=== PATIENT | male | born 1950 | race African-American/Black ===

== ENCOUNTER 2018-06-26 12:33 | Observation (INO) ==
[2018-06-26] MEDS ORDERED: NS 1,000 ML IV ONE ×2 (12:55→15:04)
[2018-06-26 13:06] LABS: BASO# 0.01 X1000 (0.0-0.2); BASO% 0.1 % (0.0-0.8); EOS# 0.02 X1000 (0.0-0.7); EOS% 0.2 % (0.0-10.0); HEMATOCRIT 48.9 % (42.0-52.0); HEMOGLOBIN 15.9 g/dL (14.0-18.0); IMM GRAN# 0.02 X1000 (0.0-0.04); IMM GRAN% 0.2 % (0.0-0.5); LYMPH% 11.7 % (20.5-51.1); MCH 28.6 PG (27-31); MCHC 32.5 g/dL (33-37); MCV 87.9 FL (81-99); MONO# 0.79 X1000 (0.11-0.59); MONO% 9.2 % (1.7-9.3); MPV 10.9 FL (7.4-10.4); NEUT# 6.74 X1000 (1.4-6.5); NEUT% 78.6 % (42.2-75.2); PLT 227 X1000 (130-400); RBC 5.56 XMIL (4.7-6.1); RDW 13.2 % (11.5-14.5); WBC 8.58 X1000 (4.8-10.8)
[2018-06-26] MEDS ORDERED: ZOFRAN IV ONE (13:07)
[2018-06-26 13:34] LABS: BILIRUBIN URINE 1+ (NEGATIVE); BLOOD URINE 4+ (NEGATIVE); CLARITY CLEAR (CLEAR); COLOR AMBER; GLUCOSE URINE NEGATIVE (NEGATIVE); KETONE URINE TRACE mg/dL (NEGATIVE); LEUKOCYTES URINE 1+ (NEGATIVE); NITRITE URINE POSITIVE (NEGATIVE); PH URINE 6.5; SP GRAVITY URINE 1.025; UROBILINOGEN URINE 1 mg/dL
[2018-06-26 13:39] LABS: URINE BACTERIA 2+ /HFP; URINE EPITHELIAL CELLS <10 /HPF (<10); URINE SOURCE CLEAN CATCH
[2018-06-26 13:41] LABS: ALBUMIN 4.6 g/dL (3.5-5.0); CALCIUM 9.8 mg/dL (8.8-10.2); CREATININE 2.1 mg/dL (0.7-1.2); POTASSIUM 3.4 mmol/L (3.5-5.1); TOTAL BILIRUBIN 0.8 mg/dL (0.20-1.00); TOTAL PROTEIN 8.7 g/dL (6.3-8.3)
--- NOTE | 2018-06-26 13:46 | Diag Imaging Result Doc PS360 ---
EXAM: ABDOMEN FLAT/UPRIGHT - 06/26/2018 HISTORY: pain epigastrium TECHNIQUE: Supine and upright abdomen COMPARISON: 06/23/2018 FINDINGS: The bowel gas pattern appears nonspecific and nonobstructive. There are some retained fecal debris in the colon. There is no free air identified. IMPRESSION: Nonspecific bowel gas pattern. Electronically signed by Florian Christine 06/26/2018 1:44 PM
--- NOTE | 2018-06-26 14:25 | PROVIDER DOCUMENTATION ---
This chart was entered by Erlinda Rojo Scribe, acting as scribe for Ravindra Kent MD. HPI-Abdominal Pain/GI Problem - General Chief Complaint: Return/Recheck Stated Complaint: THROWING UP & STOMACH ISSUES Time Seen by Provider: 06/26/18 12:51 Source: patient Allergies/Adverse Reactions: Patient Allergies Allergy/AdvReac Type Severity Reaction Status Date / Time baclofen AdvReac Unknown Verified 06/23/18 17:16 Home Medications: Home Medication List Medication Instructions Recorded Confirmed Last Taken Type Docusate Sodium [Colace] 100 mg PO DAILY #10 cap 06/23/18 Unknown Rx Magnesium Citrate [Citrate of 300 ml PO ONCE #1 bottle 06/23/18 Unknown Rx Magnesia] - History of Present Illness-ABD Nature of Presenting Problems: 67 yobm presents to the ed with 3 days of intermittent abdominal pain with n/v. pt was recently seen at [facility] with same complaint. pt on exam looks to not feel well and has dizziness and weakness with worsening sx Abdominal Pain Onset Location: reports: periumbilical Pain Radiation: reports: epigastric Quality of Pain: reports: cramping, other (nausea) Severity in ED: reports: moderate Onset/Duration: reports: 3 days ago Timing: reports: still present, intermittent, getting worse Activities at Onset: reports: light activity Exposure to sick contacts?: No Modifying Factors: improves with: nothing. worse with: eating Associated Symptoms: reports: constipation, dizziness, fatigue, loss of appetite , malaise, nausea, vomiting, weakness. denies: arm pain, back/neck pain, chest pain, cough, diarrhea, fever/chills, headaches, shortness of breath Last BM: last night Dark Stools Present?: reports: none noticed Rectal Bleeding: reports: none # of Diarrhea Episodes: 0 Rectal Pain: reports: none # of Vomiting Episodes: 2 (x2 daily) Emesis Description: reports: other (yellow) Bruising or Bleeding Gums?: No Similar Symptoms Previously?: Yes (er ) Recently seen or treated by another doctor?: Yes (have been seen at [facility]) Review of Systems - Adult - REVIEW OF SYSTEMS - ADULT Constitutional: denies: chills, fever Eyes: denies: blurred vision, double vision Ears, Nose, Mouth & Throat: reports: no symptoms reported Cardiovascular: denies: chest pain, palpitations, syncope Respiratory: denies: cough, shortness of breath, wheezing Gastrointestinal: reports: see HPI, abdominal pain, constipation, nausea, poor appetite, vomiting. denies: diarrhea Genitourinary: reports: no symptoms reported Musculoskeletal: reports: see HPI, muscle weakness. denies: back pain, neck pain Integumentary: reports: no symptoms reported Neurological: reports: see HPI, dizziness/vertigo. denies: headache/migraines, numbness, paresthesia, seizure, slurred speech, syncope, tremors Psychiatric: reports: no symptoms reported Endocrine: reports: no symptoms reported Hematologic/Lymphatic: reports: no symptoms reported Allergic/Immunologic: reports: no symptoms reported All Other Systems: Reviewed and Negative Past History - Adult - PAST MEDICAL HISTORY-ADULT Review of Records: reports: Nursing Assessment Review, Medications Reviewed Major Childhood Illnesses: reports: denies history Cardiovascular: reports: denies history Respiratory: reports: denies history Gastrointestinal: reports: denies history Genitourinary: reports: prostate cancer Musculoskeletal: reports: denies history Hand Dominance: Right Handed Neurological: reports: denies history Psychiatric: reports: denies history Endocrine/Immune: reports: denies history Other Conditions: reports: denies history - PRIOR SURGERIES/PROCEDURES Surgical/Procedure History: reports: other (prostate) - IMMUNIZATION STATUS Childhood Immunizations: See Nurse Assessment Flu Vaccine: See Nurse Assessment - FAMILY HISTORY Family History: reviewed, not pertinent - SOCIAL HISTORY Smoking: quit greater than 1 year Substance Use: denies Living Situation: family Physical Exam-General - PHYSICAL EXAM-ADULT Initial Vital Signs Reviewed: Yes - CONSTITUTIONAL General Appearance: alert, mild distress. negative: appears well - EYES Eyes: PERRL/EOMI, pale conjunctivae - HEAD, EARS, NOSE, MOUTH & THROAT HENMT: negative: moist mucous membranes - NECK Neck: non-tender, full range of motion - RESPIRATORY Respiratory: chest non-tender, lungs clear, normal breath sounds - CARDIOVASCULAR Cardiovascular: normal peripheral pulses, tachycardia (118) - GASTROINTESTINAL (ABDOMEN) Abdominal Exam: soft, no organomegaly, no pulsatile mass, guarding, tenderness (periumbilical). negative: rigid, rebound - LYMPHATIC Lymphatic: no adenopathy - MUSCULOSKELETAL Back Exam: normal inspection, no CVA tenderness, no vertebral tenderness Extremity: normal range of motion, non-tender, normal inspection, no pedal edema , no calf tenderness, normal capillary refill, pelvis stable. negative: normal gait (pt is weak and feels unstable) - SKIN Integumentary: normal color, normal turgor, warm/dry - PSYCHIATRIC Psych/Mental Status: normal mood/affect, normal thought content, normal thought process, oriented x 3 Progress - PLAN OF CARE/RESULTS Progress/Plan/Lab Results: Vital Signs - 8 hr 06/26/18 12:39 06/26/18 12:48 Temperature 98.5 F Pulse Rate 118 H Pulse Rate [Supine] 108 H Respiratory Rate 20 Blood Pressure 96/74 Blood Pressure [Sitting] 131/97 Blood Pressure [Standing] 128/87 Blood Pressure [Supine] 125/92 O2 Sat by Pulse Oximetry 97 Orders Category Date Time Status Saline Loc DIRECTED Care 06/26/18 12:44 Active NPO Diet 06/26/18 12:44 Active AMYLASE [CHEM] Stat Lab 06/26/18 12:44 Ordered CBC WITH ELECTRONIC DIFF [HEME] Stat Lab 06/26/18 12:44 Ordered COMPREHENSIVE METABOLIC PANEL [CHEM] Stat Lab 06/26/18 12:44 Uncollected LIPASE [CHEM] Stat Lab 06/26/18 12:[address] W/POSS RFLX CULT [URINALYSIS] Stat Lab 06/26/18 12:44 Uncollected Result Diagrams: 06/26/18 12:53 06/26/18 12:53 - REASSESSMENT Reassessment #1 Time Reassessed: 12:59 (pt is lying in bed ) Status: unchanged Reassessment Comment: at bedside Reassessment #2 Time Reassessed: 13:50 (pt is resting ) Status: unchanged Reassessment Comment: at bedside - EKG 1 Time of EKG reading by physician:: 13:04 EKG Read and Signed by:: Ravindra Kent EKG Interpretation (*Must complete 3 of following elements*): Abnormal Rate: 95 Rhythm: sinus rhythm with short MD Forbes: normal QRS: RBB, LVH (with repolarization abnormality), other (LAFB/possible left atrial enlargement/Bifasciclar block) Prior EKG Comparison: unchanged from prior (06/23/17) - XRAY 1 XRAY: Bilateral XRAY Study: Abdomen Impression: See EMR Report (EXAM: ABDOMEN FLAT/UPRIGHT - 06/26/2018 HISTORY: pain epigastrium TECHNIQUE: Supine and upright abdomen COMPARISON: 06/23/2018 FINDINGS: The bowel gas pattern appears nonspecific and nonobstructive. There are some retained fecal debris in the colon. There is no free air identified. IMPRESSION: Nonspecific bowel gas pattern. Electronically signed by Florian Christine 06/26/2018 1:44 PM 06/26/18 1344 Interpreting Physician: Florian Christine MD Dictated Date/Time: 06/26/18 1342 cc: Ravindra Kent MD; None,PCP) - CONSULTS/PCP/HOSPITALIST Notification #1 *Consult/PCP/Hospitalist*: hospitalist dr edwards Time Discussed: 13:58 Consult Disposition: Will see in ED, Admit Departure - Departure Date of Disposition Decision: 06/26/18 Time of Disposition Decision: 14:20 DIAGNOSIS: Epigastric pain, Prostate cancer Nausea & vomiting Qualifiers: Vomiting type: unspecified Vomiting Intractability: non-intractable Qualified Code(s): R11.2 - Nausea with vomiting, unspecified Constipation Qualifiers: Constipation type: unspecified constipation type Qualified Code(s): K59.00 - Constipation, unspecified Disposition: ADMITTED INPATIENT 09 Certified Medical Emergency: Emergent Condition: Stable Referrals and Follow-Ups: None,PCP [Primary Care Provider] - - Critical Care Note This patient required my direct & personal management of CC.: Yes Total Time (mins): 42 Critical Care Statement: This patient required my direct personal management to treat or rule out processes, the absence of which, could potentiallly result in sudden, clinically significant life or limb threatening deterioration. Attestation - Physician/ FADI Attestation Patient care was provided by Advanced Practice Provider:: No The physician spent face to face time with patient:: Yes Advanced Practice Provider documentation review:: Supervising physician onsite and consulted in the evaluation and care of this patient. The physician did have a face to face encounter with the patient. This chart was documented by the indicated scribe, (Erlinda Rojo Scribe) and accurately reflects the services I performed and decisions made by me, Ravindra Kent MD, as attested by the provider's signature.
[2018-06-26 15:03] LABS: INR 0.96; PROTIME 13.3 Seconds (11.0-16.0)
[2018-06-26 15:04] LABS: PTT 29.6 Seconds (22.3-41.8)
[2018-06-26 15:16] LABS: UR CREAT RANDOM 191.9 mg/dL (14-26)
[2018-06-26] MEDS ORDERED: TYLENOL PO PRN (15:27)
[2018-06-26] MEDS: ROCEPHIN 1 GM in NS 50 ML IV SCH (15:59)
[2018-06-26] MEDS ORDERED: MORPHINE ONE (16:03)
[2018-06-26] MEDS: ZOFRAN IV PRN (16:05)
--- NOTE | 2018-06-26 16:08 | Diag Imaging Result Doc PS360 ---
EXAM: US RENAL 2 (RETROPER) COMPLETE - 06/26/2018 HISTORY: decreased renal function TECHNIQUE: Bilateral renal ultrasound COMPARISON: None. FINDINGS: The right kidney measures 12 x 5.2 x 4.8 cm in size. The left kidney measures 11.3 x 5.2 x 5 cm in size. There is no renal mass, stone, or hydronephrosis identified. Images of the urinary bladder demonstrate no lesion. IMPRESSION: No visible abnormality. No hydronephrosis. Electronically signed by Florian Christine 06/26/2018 4:06 PM
[2018-06-26] MEDS: MORPHINE IV PRN ×2 (16:10→20:43)
[2018-06-26] MEDS: PROTONIX IV SCH (16:20)
[2018-06-26] MEDS: SODIUM CHLORIDE 0.9% INJ SCH (16:20)
[2018-06-26 17:01] LABS: HEMOGLOBIN A1C 6.2 % (4.8-6.0)
[2018-06-26] MEDS: NS 1,000 ML IV SCH (18:17)
--- NOTE | 2018-06-26 18:51 | HISTORY AND PHYSICAL ---
ADDENDUM: Patient seen and examined by myself. Full note dictated and discussed with nurse practitioner. Patient presented to the hospital with epigastric abdominal pain, nausea, occasional vomiting, felt weak and dizzy. Does have a history of prostate cancer. In fact, states she just finished receiving radiation therapy about 3 weeks ago. Denies any current fevers or chills. Denies any chest pain. Does have a history of constipation. His creatinine typically is around 1.8. It is elevated today at 2.1. We will admit to the hospital. IV fluids and will follow. cc: Cholo Eastman MD
--- NOTE | 2018-06-26 19:32 | HISTORY AND PHYSICAL ---
PRIMARY CARE PHYSICIAN: None. RADIATION ONCOLOGIST: Dr. Val Abraham. CHIEF COMPLAINT: Abdominal pain. HISTORY OF PRESENT ILLNESS: Mr. Alan is a 67-year-old male with a history of prostate cancer status post prostatectomy, on radiation therapy, followed by Dr. Val Abraham. Last scheduled radiation was last week. On Thursday he started having abdominal pain, nausea and vomiting. He went to the [facility] ER and was diagnosed with generalized abdominal pain. Apparently he has been taking medication for his prostate cancer, unsure of the name of it, but he says that he was told to stop it because that was causing his symptoms; however, he has had no relief of symptoms since discontinuing this medication. He has epigastric pain, nausea and vomiting. He reports chills. No hematemesis, hematochezia or melena. He came to our facility today for worsening pain. He was noted to be hyponatremic with acute kidney injury and a urinary tract infection. Urine electrolytes were done, which showed prerenal pathology which is consistent with volume loss. Given the above, we are going to admit him for further treatment and evaluation. PAST MEDICAL HISTORY: Prostate cancer status post prostatectomy and radiation, followed by Dr. Abraham. His urologist is Dr. Renzo Moran in [place]. PAST SURGICAL HISTORY: Prostatectomy. SOCIAL HISTORY: No tobacco, alcohol or drug use. FAMILY HISTORY: Significant for prostate cancer. REVIEW OF SYSTEMS: A 14-point review of systems was obtained and found to be negative with the exception of the HPI. ALLERGIES: Baclofen. HOME MEDICATIONS: Have not been compiled as of yet. PHYSICAL EXAMINATION: VITAL SIGNS: Blood pressure 131/92, heart rate 104, respiratory rate 24, O2 saturation 96% on room air. GENERAL: This is a well-developed, well-nourished 67-year-old male lying in the hospital bed in no acute distress. NEUROLOGIC: He is awake, alert and oriented. Follows commands, without focal deficits. HEENT: Head is atraumatic and normocephalic. Pupils are equal, round, and reactive to light. Oral mucosa is dry. NECK: Trachea is midline. There is no JVD. CHEST: Clear to auscultation. CV: Tachycardic but regular. S1 and S2 is noted. No murmurs. GI: Epigastric tenderness to palpation, but abdomen is overall soft and nondistended. Bowel sounds are hypoactive. EXTREMITIES: Without edema,clubbing or cyanosis. Pulses are 1+ bilaterally. DIAGNOSTIC DATA: Abdomen x-ray shows nonspecific bowel gas pattern. Renal ultrasound shows no hydronephrosis or obstructive uropathy. WBCs 8.5, hemoglobin 15.9, hematocrit 48.9, platelet count 227. INR 0.96. Sodium 133, potassium 3.4, chloride 79. CO2 is 39, anion gap 15, BUN 44, creatinine 2.1, glucose 184. LFTs negative. Protein 8.7, albumin 4.6. Lipase is 3.5. Lactic acid 2. UA shows UTI. ASSESSMENT/PLAN: 1. Acute kidney injury: Likely volume mediated secondary to volume loss. His FeNa is less than 1%, giving him likely prerenal pathology. Will continue with aggressive IV fluid resuscitation and follow daily creatinine. 2. Hyponatremia: Likely volume related as well. Will continue IV fluids and monitor his response. 3. Abdominal pain: The patient will need a CT of the abdomen, but we would like to do this with contrast, and he has acute kidney injury right now. There is nothing that would point to a surgical abdomen at this time; however, given his history of prostate cancer, we do need to evaluate for any type of intra-abdominal mass. Will continue with antiemetics, IV fluids. If no improvement in his creatinine. would consider a noncontrasted CT. 4. Prostate cancer. Aware. 5. Hyperglycemia: Will check a hemoglobin A1c. 6. Hypokalemia. Will replace and check a magnesium and follow daily electrolytes. 7. Deep venous thrombosis prophylaxis with sequential compression devices. 8. Further recommendations to follow. Dictated by MARLEEN Gonzalez for Cholo Eastman MD cc: MARLEEN Gonzalez MD Traci C. McCormick, MD
[2018-06-27] MEDS: MORPHINE IV PRN ×5 (02:56→20:33)
[2018-06-27] MEDS: NS 1,000 ML IV SCH ×3 (02:56→21:30)
[2018-06-27 07:56] LABS: CALCIUM 8.2 mg/dL (8.8-10.2); CREATININE 1.4 mg/dL (0.7-1.2); HEMATOCRIT 41.9 % (42.0-52.0); HEMOGLOBIN 13.5 g/dL (14.0-18.0); MAGNESIUM 2.3 mg/dL (1.5-2.7); MCHC 32.2 g/dL (33-37); MCV 89.9 FL (81-99); MPV 11.3 FL (7.4-10.4); POTASSIUM 3.4 mmol/L (3.5-5.1); RBC 4.66 XMIL (4.7-6.1); RDW 13.2 % (11.5-14.5); WBC 5.58 X1000 (4.8-10.8)
[2018-06-27] MEDS: ROCEPHIN 1 GM in NS 50 ML IV SCH (16:37)
[2018-06-27] MEDS: CARAFATE PO SCH ×2 (16:37→20:33)
[2018-06-27] MEDS: PROTONIX IV SCH (16:38)
[2018-06-27] MEDS: SODIUM CHLORIDE 0.9% INJ SCH (16:38)
--- NOTE | 2018-06-27 17:37 | PROGRESS NOTE ---
DATE: 06/27/2018 SUBJECTIVE: Patient notes he is still having some epigastric pain. Hurts to palpate. States he has also been having some constipation issues. Notes that when he eats the pain in his epigastric region seems to be worse. He is unclear if not eating makes any better, however. PHYSICAL EXAMINATION: Vital Signs: Reviewed. General: He is awake, alert. He is in no apparent distress. HEENT: Normocephalic. Neck: Supple. Cardiovascular: Regular rate. Chest: Clear and nonlabored. Abdomen: Soft. Positive epigastric pain. Positive bowel sounds. Extremities: Moves all extremities. Neurologic: No changes. ASSESSMENT: 1. Acute kidney injury. Creatinine has actually improved down 1.4. 2. Hypokalemia. 3. Epigastric abdominal pain. We will add Carafate and a PPI. If not improve he certainly may require transfer for GI evaluation and an EGD. 4. Hyperglycemia, stable. 5. History of prostate cancer. 6. Urinary tract infection. We will start him on Rocephin until cultures have returned. cc: Cholo Eastman MD
[2018-06-27] MEDS: ZOFRAN IV PRN (20:33)
[2018-06-28] MEDS: MORPHINE IV PRN ×3 (00:39→20:23)
[2018-06-28 07:49] LABS: HEMATOCRIT 38.9 % (42.0-52.0); HEMOGLOBIN 12.4 g/dL (14.0-18.0); MCH 28.5 PG (27-31); MCHC 31.9 g/dL (33-37); MCV 89.4 FL (81-99); MPV 11.2 FL (7.4-10.4); RBC 4.35 XMIL (4.7-6.1); RDW 12.9 % (11.5-14.5); WBC 3.52 X1000 (4.8-10.8)
[2018-06-28] MEDS: CARAFATE PO SCH ×4 (08:05→20:23)
[2018-06-28 08:11] LABS: AGAP 8; BUN 19 mg/dL (8-22); CALCIUM 8.3 mg/dL (8.8-10.2); CHLORIDE 102 mmol/L (98-107); COSMO 277; ESTIMATED GFR > 60; GLUCOSE 89 mg/dL (70-104); POTASSIUM 3.7 mmol/L (3.5-5.1); SODIUM 138 mmol/L (136-145); TCO2 28 mmol/L (25-35)
[2018-06-28] MEDS: NS 1,000 ML IV SCH ×2 (08:14)
--- NOTE | 2018-06-28 12:08 | PROGRESS NOTE ---
DATE: 06/28/2018 SUBJECTIVE: The patient still reports epigastric pain, cramping in nature, worse with eating and drinking. Feels that he is constipated. OBJECTIVE: Vitals: Temperature is 98.2 degrees. Heart rate 65, respirations 18, blood pressure 116/75, O2 is 97% on room air. General: Mr. Alan is a 67-year-old male who is lying in the bed in no acute distress. HEENT: Atraumatic, normocephalic. NESHA. Neck: Supple. Trachea midline. CARDIOVASCULAR: S1, S2 appreciated. No murmurs, gallops, or rubs noted. Respiratory: Lung sounds clear. GI: Positive bowel sounds 4 quadrants. His abdomen is soft, nondistended, does complain of epigastric tenderness with palpation. Extremities: No clubbing, cyanosis, or edema. Neurologic: The patient is awake, alert, and oriented. Follows commands. No focal deficits noted. DIAGNOSTIC DATA: Pending CT of the abdomen. LABORATORY DATA: Urine culture shows mixed roseann. Blood cultures no growth after 48 hours. CBC: Hemoglobin and hematocrit is 12 and 38, white count is 3, platelet count is 151,000. Chemistry: Sodium 138, potassium 3.7, BUN 19, creatinine 1. Blood glucose is 89. ASSESSMENT AND PLAN: 1. Acute kidney injury believed to be secondary to volume depletion. The patient has been receiving IV fluid resuscitation. It is now completely resolved. 2. Hyponatremia, resolved. 3. Abdominal pain. Pending CT of the abdomen. The patient still continues to complain of epigastric abdominal pain, cramping in nature, made worse with even drinking water or eating any types of food. He feels constipated. We will continue with IV fluids, clear liquid diet. He has had no nausea or vomiting since receiving IV fluid, possible transfer to [facility] for EGD. 1. Prostate cancer aware. 2. Hypoglycemia. Hemoglobin A1c borderline at 6.2. 3. Hypokalemia, resolved. 4. DVT prophylaxis with sequential compression device. 5. Disposition. Pending abdominal CT of the abdomen and possible transfer to [facility] for GI consultation. Dictated by MARLEEN Paulino for Mike Moreno MD cc: Mike Moreno MD [facility]
--- NOTE | 2018-06-28 13:41 | Diag Imaging Result Doc PS360 ---
EXAM: CT ABDOMEN W/WO CONTRAST HISTORY: contiuned abd pain TECHNIQUE: Routine CT abdomen with and without contrast. COMPARISON: 10/18/2014 FINDINGS: Lung bases are unremarkable. Noncontrasted images reveal mild hepatic steatosis. There is a small hiatal hernia. No calcified gallstones. No urolithiasis. 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 Contrasted images reveal an unchanged 8 mm hypodensity right kidney, statistically a benign cortical cyst. The liver, spleen, pancreas, and adrenal glands show no focal abnormalities. There is no free fluid, free air, or bowel distention. No inflammatory changes are appreciated. The abdominal aorta is of normal caliber. There is no retroperitoneal or mesenteric air adenopathy. IMPRESSION: Mild hepatic steatosis. No acute abnormalities. This exam was performed using automated exposure control, adjustment of mA or kV according to patient size, and/or use of iterative reconstruction technique. Electronically signed by Candice Bell 06/28/2018 1:38 PM
[2018-06-28] MEDS ORDERED: LACTULOSE PO SCH (13:45)
[2018-06-28] MEDS ORDERED: MIRALAX PO SCH (13:45)
[2018-06-28] MEDS ORDERED: PROTONIX IV SCH (13:45)
[2018-06-28] MEDS: SODIUM CHLORIDE 0.9% INJ SCH ×2 (14:06→17:51)
--- NOTE | 2018-06-28 14:07 | EKG Report ---
Test Performed on : 06/26/2018 1:04:35 PM Test Reason : ER Blood Pressure : / mmHG Vent. Rate : 098 BPM Atrial Rate : 098 BPM P-R Int : 114 ms QRS Dur : 152 ms QT Int : 412 ms P-R-T Axes : 050 -67 099 degrees QTc Int : 525 ms Normal sinus rhythm. Biatrial enlargement Right bundle branch block Left anterior fascicular block Bifascicular block Left ventricular hypertrophy with repolarization abnormality Cannot rule out Septal infarct (cited on or before 26-JUN-2018) Abnormal ECG When compared with ECG of 26-JUN-2018 13:04, (Unconfirmed) Serial changes of Septal infarct present Unconfirmed Result
--- NOTE | 2018-06-28 14:18 | PROGRESS NOTE ---
DATE: 06/28/2018 ADDENDUM: SUBJECTIVE: The patient is still complaining of pain, although he is sitting up in bed, eating putting, but he is not throwing up, but he says the pain is severe. He cannot go home. He cannot tolerate the pain. He is requiring IV pain medication. Unclear etiology at this point. He also says he has not had a bowel movement in 3 days. OBJECTIVE: Vital Signs: Blood pressure 116/75, heart rate 65, respiratory rate 18, temperature 98.2 degrees. Cardiovascular: Regular rate and rhythm. Pulmonary: Bilateral breath sounds. Clear to auscultation. GI: Soft, nontender, nondistended. Bowel sounds are positive. LABORATORY DATA: White count is 3, hemoglobin and hematocrit 12 and 38, platelets 151,000. Basic was normal. PROBLEM LIST: Abdominal pain. CT is really unremarkable, although to me, his gastric mucosa looked more prominent, maybe just a contracture issue. I think endoscopy is the next test we need to do, so we will initiate that, and we are planning for transfer across [facility] when bed available. cc: Mike Moreno MD
[2018-06-28] MEDS: ROCEPHIN 1 GM in NS 50 ML IV SCH (17:52)
[2018-06-28] MEDS ORDERED: TYLENOL PO PRN (19:41)
[2018-06-28] MEDS ORDERED: ZOFRAN IV PRN (19:43)
[2018-06-28] MEDS ORDERED: NS 1,000 ML IV SCH (20:00)
[2018-06-28] MEDS ORDERED: G.I. COCKTAIL PO PRN (20:06)
[2018-06-28] MEDS: LACTULOSE PO SCH (20:23)
[2018-06-29] MEDS ORDERED: SODIUM CHLORIDE 0.9% INJ SCH ×2 (03:00)
[2018-06-29] MEDS: SODIUM CHLORIDE 0.9% INJ SCH ×2 (05:32→18:08)
[2018-06-29] MEDS: PROTONIX IV SCH ×2 (05:32→18:07)
[2018-06-29] MEDS: CARAFATE PO SCH ×4 (06:46→22:11)
[2018-06-29 07:13] LABS: HEMATOCRIT 38.6 % (42.0-52.0); HEMOGLOBIN 12.5 g/dL (14.0-18.0); MCH 29.2 PG (27-31); MCHC 32.4 g/dL (33-37); MCV 90.2 FL (81-99); MPV 10.8 FL (7.4-10.4); RBC 4.28 XMIL (4.7-6.1); WBC 3.21 X1000 (4.8-10.8)
[2018-06-29 07:33] LABS: AGAP 9; BUN 15 mg/dL (8-22); CALCIUM 8.7 mg/dL (8.8-10.2); CHLORIDE 102 mmol/L (98-107); COSMO 275; CREATININE 1.1 mg/dL (0.7-1.2); ESTIMATED GFR > 60; GLUCOSE 108 mg/dL (70-104); POTASSIUM 3.8 mmol/L (3.5-5.1); SODIUM 137 mmol/L (136-145); TCO2 26 mmol/L (25-35)
[2018-06-29] MEDS: MORPHINE IV PRN ×3 (09:52→22:11)
[2018-06-29] MEDS: LACTULOSE PO SCH ×3 (09:53→22:11)
[2018-06-29] MEDS: MIRALAX PO SCH ×2 (09:53→09:56)
--- NOTE | 2018-06-29 10:37 | GASTROENTEROLOGY CONSULTATION ---
DATE: 06/29/2018 REASON FOR CONSULTATION: Nausea and vomiting, abdominal pain. HISTORY OF PRESENT ILLNESS: This is a 67-year-old, male with a history of prostate cancer. Reported diagnosis in 2010. Has followed with Dr. Abraham for radiation. Patient states he completed 38 radiation treatments. He reports last radiation treatment was approximately 3 weeks ago. The patient reports onset of current symptoms over the last week. He has reported episodes of nausea and vomiting, epigastric pain described as cramping. He states eating makes the pain worse. He has also reported some constipation and has not taken any over the counter laxatives at home. He reported dark stool but denies bright red blood in the stool. He usually has a bowel movement daily. No reported fever or chills. He had findings of acute kidney injury and urinary tract infection. He was initially at [facility] and transferred to [facility]. Patient states he has never had an EGD or colonoscopy. PAST MEDICAL HISTORY: Prostate cancer status post prostatectomy, radiation followed by Dr. Abraham. He follows with urologist, Dr. Renzo Moran, in [place]. PAST SURGICAL HISTORY: Prostatectomy. ALLERGIES: Baclofen, unknown reaction. HOME MEDICATIONS: Colace 100 mg daily and he has used citrate of magnesium recently for his constipation. Otherwise no medications listed. SOCIAL HISTORY: History of tobacco use, quit in 2012. He denies alcohol use. He is , he has 3 children. FAMILY HISTORY: Positive for prostate cancer. No reported family history of GI cancers including esophageal, gastric or colon. REVIEW OF SYSTEMS: Per history of present illness. PHYSICAL EXAMINATION: Vital Signs: Temperature 97.6 degrees, pulse 77, respirations 20, blood pressure 102/65. General: Patient is awake and alert. No acute distress. HEENT: Normocephalic, atraumatic. Pupils equal, round, reactive to light. Sclerae nonicteric. Cardiovascular: Regular rate and rhythm. Pulmonary: Lung sounds essentially clear. Abdomen: Soft, nontender with palpation. Positive bowel sounds. DIAGNOSTIC RESULTS: Laboratory: Hematology WBC 3.21, hemoglobin 12.5, hematocrit 38.6, MCV 90.2, platelet 146,000. Chemistry: Sodium 137, potassium 3.8, chloride 102, CO2 26, BUN 15, creatinine 1.1, glucose 108, calcium 8.7. IMAGING: Abdominal x-ray showed nonspecific bowel gas pattern with some retained fecal debris in the colon. Renal ultrasound showed no visible abnormality, no hydronephrosis. Abdominal CT showed hepatic steatosis. Otherwise no acute abnormalities. ASSESSMENT AND PLAN: 1. Abdominal pain. 2. Nausea and vomiting. 3. History of prostate cancer. 4. The patient has never had EGD or colonoscopy. PLAN: We will start with the EGD. Will plan to proceed with EGD today if schedule allows. Further plans will be made according to findings. I have discussed the procedure along with benefits and risks with the patient and he wishes to proceed. I have discussed this case with Dr. Tuttle. Dictated by MARLEEN Killian for Dimitrois Tuttle MD cc: MARLEEN Dao MD [facility]
--- NOTE | 2018-06-29 14:50 | PROGRESS NOTE ---
DATE: 06/29/2018 INTERVAL HISTORY: Mr. Alan was transferred from [facility] to [facility] for management of intractable nausea, vomiting and epigastric abdominal pain which did not resolve. The CAT scan abdomen, pelvis was essentially unremarkable except thickening of the gastric mucosal wall during contrast administration. SUBJECTIVE: At the time of my evaluation he says that he currently is not having any nausea, vomiting or abdominal pain. However as soon as he eats his epigastric pain returns. I discussed with him about differential diagnosis of acute gastritis, peptic ulcer disease, pyloric stenosis or other intraabdominal pathology, possibly gallbladder pathology. He is supposed to go for EGD likely tomorrow. Currently vitals temperature 97.8 degrees, pulse 74, respiratory rate 20, blood pressure 120/74, saturating 98% on room air. PHYSICAL EXAMINATION: He does not appear in any acute distress. Oral cavity is moist. Air entry bilaterally equal. No wheeze, rhonchi, crackles. S1, S2 normal. No murmur, rub or gallop. Normal sinus rhythm on bedside monitor.Abdomen: Soft, nontender. No lower extremity edema. Neurologic: Alert, oriented x3. LABS: Suggestive of leukopenia, anemia, normocytic and normal platelet count. His hyponatremia, hypochloremia, acute kidney injury have resolved. Microbiology. Urine culture and blood culture no growth till date. ASSESSMENT AND PLAN: 1. Intractable nausea and vomiting at the time of presentation now resolved. Continue as needed ondansetron. 2. Persistent epigastric pain exacerbated by food intake. Differential includes acute gastritis, peptic ulcer disease, pyloric stenosis, gallbladder disease versus others. Continue pantoprazole intravenous every 12 hours with sucralfate. Patient likely to undergo EGD tomorrow. Continue lidocaine and magnesium hydroxide as needed if his epigastric pain returns. 3. Constipation. Continue lactulose and MiraLAX. 4. Hyponatremia, hypochloremia, acute kidney injury at the time presentation because of volume depletion now resolved after intravenous fluid resuscitation which I will stop. 5. Pyuria. However urine culture, blood culture negative, I will discontinue antibiotics. DISPOSITION: The patient remains inside the hospital awaiting EGD and possibly colonoscopy in future. Plan of care discussed with the patient. All of his questions have been answered. cc: MD YARON Alexander
[2018-06-29] MEDS ORDERED: ROCEPHIN 1 GM in NS 50 ML IV SCH (18:00)
[2018-06-30] MEDS: SODIUM CHLORIDE 0.9% INJ SCH ×2 (06:03→17:54)
[2018-06-30] MEDS: PROTONIX IV SCH ×2 (06:03→17:54)
[2018-06-30] MEDS: CARAFATE PO SCH ×4 (06:03→21:09)
[2018-06-30 07:16] LABS: HEMATOCRIT 36.9 % (42.0-52.0); HEMOGLOBIN 11.9 g/dL (14.0-18.0); MCH 29.1 PG (27-31); MCHC 32.2 g/dL (33-37); MCV 90.2 FL (81-99); MPV 10.8 FL (7.4-10.4); RBC 4.09 XMIL (4.7-6.1); RDW 13.1 % (11.5-14.5); WBC 2.99 X1000 (4.8-10.8)
[2018-06-30] MEDS ORDERED: DIPRIVAN 1% ONE (07:26)
[2018-06-30] MEDS ORDERED: ROBINUL ONE (08:10)
[2018-06-30] MEDS ORDERED: XYLOCAINE-MPF 2% ONE (08:10)
--- NOTE | 2018-06-30 08:55 | OPERATIVE NOTE ---
PROCEDURE DATE: 06/30/2018 PROCEDURE: Esophagogastroduodenoscopy and biopsy. PREOPERATIVE DIAGNOSIS: Abdominal pain, nausea, vomiting. POSTOPERATIVE DIAGNOSES: 1. Gastric ulcers. 2. Severe esophagitis. HISTORY: This is a 67-year-old gentleman admitted to hospital with abdominal pain, nausea and vomiting. EGD was done for diagnostic as well as therapeutic purposes. DETAILS OF OPERATION: Informed consent was obtained from the patient. The procedure, risks, benefits, alternatives were explained in layman's terms. He understood. All his pertinent questions were answered. The patient was brought to the endoscopy unit and was premedicated as per Anesthesia. After adequate sedation, while he was lying in left lateral position, the gastroscope was introduced into the posterior pharynx and advanced under direct vision into the esophagus. Esophagus in the upper and middle part was normal. Distal esophagus showed evidence of severe esophagitis with linear ulcers. At least I saw 2. No stigmata of recent bleed seen. No varices were seen. The GE junction was at about 40 cm from the incisor. Biopsy was taken from the esophagitis using cold biopsy forceps. The scope was then passed through the esophagus into the stomach. Stomach was examined both in straight and retroflexed view, which revealed normal cardia, fundus, and body. In the antrum, however, there were multiple erosions seen. These erosions were 5 to 8 mm in size and there was a large deep clean-based, punched-out ulcer seen at the antrum in the prepyloric area. The size of the ulcer was about 2 cm in diameter. Multiple biopsies were obtained from the edges. Scope was then passed through the pylorus into the duodenal bulb, and then the 2nd portion of duodenum, which appeared to be normal. The scope was then removed. Patient tolerated procedure well. No complications noted. Patient was then transferred to the recovery area in a stable condition. IMPRESSION: 1. Gastric ulcers, biopsied. 2. Severe erosive gastritis. 3. Severe erosive esophagitis, biopsied. RECOMMENDATION: Continue proton pump inhibitor. Follow up the biopsy report. If Helicobacter pylori is positive, we will treat. Follow up at the office and depending on the findings, further plans will be made. I have explained the findings and plan to the patient, but he still is sedated. No family members available at this time. I will follow. cc: Dimitrios Tuttle MD
[2018-06-30] MEDS: LACTULOSE PO SCH ×2 (09:08→21:09)
[2018-06-30] MEDS: MIRALAX PO SCH (09:08)
[2018-06-30] MEDS: MORPHINE IV PRN ×3 (12:18→21:09)
--- NOTE | 2018-06-30 21:04 | PROGRESS NOTE ---
DATE: 06/30/2018 INTERVAL HISTORY: The patient underwent EGD for persistent epigastric abdominal pain, which had detected erosive esophagitis, which was severe erosive gastritis. There was esophageal ulcer and there was 2 cm gastric ulcer with a clean base, without any active bleeding. He tolerated the procedure well. Since then, he has been tolerating full liquid diet without any trouble. The patient's wanted me to fill out [facility] paperwork that I have filled out. I am going to ask the nursing team to make a copy of it, and I am going to put it in the patient's chart. Currently the patient denies any nausea, vomiting or abdominal pain. OBJECTIVE: Vital signs detect temperature 97.9 degrees, pulse 65, respiratory rate 20, blood pressure 106/73, saturating 100% on room air. On physical examination, generally does not appear in any acute distress. No pallor, cyanosis, clubbing or icterus. Oral cavity is moist. Air entry bilaterally equal. No wheeze, rhonchi or crackles. S1, S2 normal. No murmur, rub or gallop. Abdomen is soft, nontender. Active bowel sounds. No lower extremity edema. He is alert and oriented x3. LABORATORY DATA: Labs suggestive of leukopenia, normocytic anemia, normal platelet count. He does not have any more BMP. No positive blood culture or urine culture data. DIAGNOSTIC DATA: EGD report as mentioned above. ASSESSMENT AND PLAN: 1. Intractable nausea, vomiting and epigastric abdominal pain, exacerbated by p.o. intake, status post esophagogastroduodenoscopy on 06/29 which detected severe erosive esophagitis with esophageal ulcer as well as erosive gastritis and gastric ulcer. Continue intravenous pantoprazole and change it to p.o. Protonix b.i.d. at the time of discharge. Continue sucralfate. He should follow up with Gastroenterology as an outpatient in 2 weeks time and discuss about Helicobacter pylori and gastric biopsy results. Continue ondansetron as needed for nausea, which he does not have anymore. 2. Constipation. Continue lactulose and MiraLAX. It has been now resolved. 3. Leukopenia. This could be in the setting of proton pump inhibitor use. I am repeating CBC tomorrow. If it still shows decreasing trend, then we will have to discuss with Gastroenterology if they would prefer lansoprazole over other proton pump inhibitor. 4. Hyponatremia, hypochloremia and acute kidney injury at the time of presentation because of volume depletion now has resolved. I will advance his diet to gastrointestinal soft diet tomorrow. 5. Pyuria with negative culture. I had stopped antibiotics previously. 6. Disposition: If the patient is tolerating gastrointestinal soft diet tomorrow, the plan is to discharge him home. Plan of care was discussed with the patient and who is a surrogate decision maker at bedside. All of their questions have been answered. cc: Reece Nicholson MD MTDD
[2018-07-01 07:44] LABS: HEMATOCRIT 38.9 % (42.0-52.0); HEMOGLOBIN 12.8 g/dL (14.0-18.0); MCH 29.5 PG (27-31); MCHC 32.9 g/dL (33-37); MCV 89.6 FL (81-99); MPV 10.7 FL (7.4-10.4); RBC 4.34 XMIL (4.7-6.1); RDW 13.1 % (11.5-14.5); WBC 2.86 X1000 (4.8-10.8)
[2018-07-01 08:24] VITALS: BP 108/57
[2018-07-01] MEDS: LACTULOSE PO SCH (09:00)
[2018-07-01] MEDS: MIRALAX PO SCH (09:00)
[2018-07-01] MEDS: CARAFATE PO SCH ×2 (09:00→11:10)
[2018-07-01] MEDS: SODIUM CHLORIDE 0.9% INJ SCH (09:01)
[2018-07-01] MEDS: PROTONIX IV SCH (09:01)
--- NOTE | 2018-07-01 20:47 | DISCHARGE SUMMARY ---
ADMISSION DATE: 06/26/2018 DISCHARGE DATE: 07/01/2018 ADMISSION DIAGNOSES: 1. Acute kidney injury secondary to volume loss. 2. Hyponatremia. 3. Abdominal pain. 4. Prostate cancer. 5. Hyperglycemia. 6. Hypokalemia. DISCHARGE DIAGNOSES: 1. Intractable nausea, vomiting and epigastric abdominal pain exacerbated by p.o. intake, status post esophagogastroduodenoscopy on June 29, which detected severe erosive esophagitis with esophageal ulcer as well as erosive gastritis and gastric ulcer. 2. Constipation. 3. Leukopenia. 4. Hyponatremia. 5. Pyuria with negative culture. 6. Acute kidney injury, resolved. CONSULTATIONS: Dr. Tuttle. PROCEDURES/SURGERIES: On 06/30/2018 Dr. Tuttle performed an EGD and biopsy, and postoperative diagnosis included gastric ulcers that were biopsied, severe erosive gastritis and severe erosive esophagitis that was biopsied. HOSPITAL COURSE: Michael Ruiz is a 67-year-old male who presented to [facility] on 06/26/2018 with abdominal pain. He had a history of prostate cancer, prostatectomy, and radiation therapy which had been the week before admission. He also had nausea and vomiting that accompanied the abdominal pain that had started a few days prior to admission. Apparently he had even gone to the [facility] ER and was diagnosed with generalized abdominal pain. When he was seen here, he was instructed to stop his prostate medications to see if that would help, but it did not. He also reported chills and came to [facility] due to the worsening pain. He was hyponatremic. He had some acute kidney injury and pyuria without infection. They treated his potassium level. His blood glucose levels were elevated. He had a CT of the abdomen which showed mild hepatic steatosis, but nothing acute. Gastroenterology was consulted due to the worsening abdominal pain, who saw him on the , and they planned to do an EGD, which they performed on the , the following day, which then showed the gastric ulcers, the erosive gastritis, and the severe esophagitis, which were all biopsied, and pathology is currently still pending. They kept him on a proton pump inhibitor, but afterwards the intractable nausea and vomiting had resolved, although he was still having some persistent epigastric pain that would be exacerbated with food intake. So, he was continue on the Protonix twice a day and the scheduled Carafate. He had some leukopenia which was felt to be from the proton pump inhibitor, but he was continued on it anyway at 40 mg of Protonix twice a day, and continued on the Carafate as well. He is going to be discharged on those medications, and to follow up with Gastroenterology in 2 weeks. DISCHARGE VITAL SIGNS: Temperature 98.2, heart rate 76, respiratory rate 20, blood pressure 108/57, O2 saturation 100% on room air. LABORATORY DATA: White blood cells 2000, hemoglobin 12, hematocrit 38, platelet count 164. On the , he had a BMP which showed a sodium of 137, potassium of 3.8, BUN of 15, creatinine of 1.1, glucose of 108. Calcium was 8.7, magnesium 2.0 today. There was a gastrin level performed, which was 30. PERTINENT IMAGING: On 06/26/2018,abdominal x-ray showed nonspecific bowel gas pattern. Renal ultrasound: No physical abnormality, no hydronephrosis. On the , there was an abdominal CT with mild hepatic steatosis but no acute abnormalities. MICROBIOLOGY: Blood cultures and urine culture are all negative. DISCHARGE DIET: Soft diet. DISCHARGE ACTIVITY: As tolerated, taking care to prevent falls. DISCHARGE FOLLOWUP: With Dr. Tuttle on 07/29/2018 at 9 a.m. DISCHARGE INSTRUCTIONS: If your condition changes, contact your physician and/or return to the emergency department. Changes may include but are not limited to: Shortness of breath, increased fatigue, excess bleeding, unexplained weight loss or gain, unimaginable pain, or signs or symptoms of infection. DISCHARGE DISPOSITION: Home. Dictated by MARLEEN Wilkerson for Jamie Daley MD cc: MD Jamie Clancy MD I have seen and examined Mr Alan today. He is currently asymptomatic and stable for discharge. Recommended to follow up with GI. I have reconciled his home medications. All the discharge recommendations are discussed with him and he voices understanding. Discharge time 32 minutes. [facility]
== END 2018-07-01 11:58 | disposition home or self-care (01) ==
LOC: P.ED 12:33 → P.MEDSURG 15:57 → OPS 15:57 → SUATTDRO 15:57 → DIRADM 15:57 → 3N 15:57
PROVIDERS: ADMIT Family Medicine; ATTEND Family Medicine
CPT/HCPCS: 74019; 74020; 74022; 74170; 76770; 80048; 80053; 81001; 82150; 82570; 82941; 83036; 83605; 83690; 83735; 83935; 84156; 84300; 84484; 85025; 85027; 85610; 85730; 87040; 87088; 88305; 88312; 88313; 93005; 96374; 99284; 99285; A9270; C9113; J0696; J2270; J2405; J7030; S0164